=== PATIENT | male | born 1975 | race Two or more races ===

== ENCOUNTER 2022-12-18 10:35 | Emergency (ER) | payer MEDICAID ==
[~2022-12-18] VITALS: Ht 170.2 cm; Wt 63.0 kg
[2022-12-18 10:44] VITALS: BP 132/87
== END 2022-12-18 16:48 | disposition left against medical advice (07) ==
LOC: ER 13:38
DX: Z53.21 Procedure and treatment not carried out due to patient leaving prior to being seen by health care provider (principal)